=== PATIENT | male | born 1990 | race Caucasian/White ===

== ENCOUNTER 2019-10-06 11:43 | Emergency (ER) | payer OTHER, MEDICAID ==
--- NOTE | 2019-10-06 12:34 | EDM.PDOC ---
ED HPI GENERAL MEDICAL PROBLEM - General Chief Complaint: ENT Problem Stated Complaint: HARD TO SWALLOW Time Seen by Provider: 10/06/19 12:34 Source of Information: Reports: Patient History Limitations: Reports: No Limitations - History of Present Illness INITIAL COMMENTS - FREE TEXT/NARRATIVE: pt has been sicjk since Friday. He is coughing alot and alot of body aches. Onset: Other ( started Friday. ) Duration: Hour(s): Location: Reports: Chest, Generalized Associated Symptoms: Reports: Cough, Fever/Chills - Related Data Allergies Allergy/AdvReac Type Severity Reaction Status Date / Time No Known Allergies Allergy Verified 10/06/19 11:58 Home Meds: Home Meds NK [No Known Home Meds] 10/06/19 [History] Past Medical History Other Musculoskeletal History: broken ankle Social & Family History - Tobacco Use Smoking Status *Q: Never Smoker - Caffeine Use Caffeine Use: Reports: Coffee - Recreational Drug Use Recreational Drug Use: No ED ROS ENT - Review of Systems Review Of Systems: See Below Constitutional: Reports: Fever, Chills, Malaise HEENT: Reports: No Symptoms Respiratory: Reports: Wheezing, Cough Cardiovascular: Reports: No Symptoms Endocrine: Reports: No Symptoms GI/Abdominal: Reports: No Symptoms : Reports: No Symptoms Musculoskeletal: Reports: Muscle Stiffness Skin: Reports: No Symptoms Neurological: Reports: No Symptoms ED EXAM, ENT - Physical Exam Exam: See Below Text/Narrative:: pt arrived with increased sob and cough. he has alot of body aches and low grade temp. Exam Limited By: Uncooperative General Appearance: Severe Distress Ears: Normal TMs Nose: Normal Inspection Mouth/Throat: Other (mild redness in the throat) Head: Atraumatic Neck: Lymphadenopathy (R), Lymphadenopathy (L) Respiratory/Chest: No Respiratory Distress Cardiovascular: Regular Rate, Rhythm GI/Abdominal: Soft, Non-Tender (Male) Exam: Deferred Rectal (Males) Exam: Deferred Back: Normal Inspection Extremities: Normal Inspection Course - Vital Signs Last Recorded V/S: Last Vital Signs Temp 36.4 C 10/06/19 12:00 Pulse 114 H 10/06/19 12:00 Resp 16 10/06/19 12:00 BP 119/69 10/06/19 12:00 Pulse Ox 96 10/06/19 12:00 - Orders/Labs/Meds Orders: Active Orders 24 hr Category Date Time Status CULTURE STREP A CONFIRMATION [RM] Stat Lab 10/06/19 12:00 Results STREP SCRN A RAPID W CULT CONF [RM] Stat Lab 10/06/19 12:00 Results - Re-Assessments/Exams Free Text/Narrative Re-Assessment/Exam: 10/06/19 12:46 strept is neg, influ a is positive. Departure - Departure Time of Disposition: 12:40 Disposition: Home, Self-Care 01 Condition: Fair Clinical Impression: Influenza A - Discharge Information Referrals: PCP,None [Primary Care Provider] - Forms: ED Department Discharge Care Plan Goals: push fluids, robitussin ac 1-2 tsp as needed for the cough, tamaflu 75 bid for 5 days, tylenol and motrin for body aches, rtc if increased symptoms. Sepsis Event Note - Evaluation Sepsis Screening Result: No Definite Risk - Focused Exam Vital Signs: Vital Signs Temp Pulse Resp BP Pulse Ox 10/06/19 12:00 36.4 C 114 H 16 119/69 96 10/06/19 11:55 36.4 C 114 H 16 119/69 96 Date Exam was Performed: 10/06/19 Time Exam was Performed: 12:44 - My Orders Last 24 Hours: My Active Orders 10/06/19 12:00 CULTURE STREP A CONFIRMATION [RM] Stat STREP SCRN A RAPID W CULT CONF [RM] Stat - Assessment/Plan Last 24 Hours: My Active Orders 10/06/19 12:00 CULTURE STREP A CONFIRMATION [RM] Stat STREP SCRN A RAPID W CULT CONF [RM] Stat
== END 2019-10-06 12:53 | disposition home or self-care (01) ==
LOC: JP.ED 11:43
DX: J10.1 Influenza due to other identified influenza virus with other respiratory manifestations (principal)
CPT/HCPCS: 87081; 87804; 87804-59; 87880-QW; 99283